=== PATIENT | female | born 1975 | race Caucasian/White ===

== ENCOUNTER 2024-09-04 06:55 | Observation (INO) ==
--- NOTE | 2024-07-23 12:33 | PAT Medication Instructions ---
Medication Instructions Date of Service July 23, 2024 Home Medications loratadine-pseudoephedrine ER 10 mg-240 mg tablet,extended [id number] (Claritin-D 24 Hour) 1 tab PO DAILY PRN sinus congestion thyroid (pork) 240 mg tablet ([place] Thyroid) 240 mg PO QAM MEDICATION INSTRUCTIONS: DO NOT take the morning of surgery loratadine-pseudoephedrine ER 10 mg-240 mg tablet,extended [id number] (Claritin-D 24 Hour) 1 tab PO DAILY PRN sinus congestion Take morning of surgery With a small sip of water, OTHERWISE NOTHING TO EAT OR DRINK AFTER MIDNIGHT: thyroid (pork) 240 mg tablet ([place] Thyroid) 240 mg PO QAM Other Notes If you have any questions please call us at [phone] or [phone] or [phone] or [phone]
--- NOTE | 2024-08-03 10:44 | Anesthesiology Consultation ---
Date of Service August 03, 2024 Assessment & Plan (1) Encounter for pre-operative examination: - Outpatient joint assessment: Patient is currently scheduled for inpatient pathway. If re-evaluated and patient/surgeon requests outpatient pathway, patient is acceptable candidate for outpatient joint program from anesthesia standpoint pending surgeon's office assessment of pt motivation/support/completion of same day joint program preop requirements. Chart Review Chart Review: Acceptable Risk for Surgery and Patient seen in Pre Admission Testing Teaching & Discussion Pre-Anesthesia Teaching/Discussion Notes: Instructed NPO after midnight before surgery, except medications with 15 cc of water. Medication instructions provided according to the PAT guidelines. History Surgery Operation Date: 09/04/24 08:00 Proposed Procedures p Right Anterior Total Hip Arthroplasty - Brayden Ziegler, Height/Weight Height: 5 ft 3 in Weight: 86.3 kg Allergies Allergy/AdvReac Type Severity Reaction Status Date / Time ciprofloxacin Allergy Severe Chest Pain Verified 07/17/24 11:03 erythromycin base Allergy Severe rash and Verified 07/17/24 11:03 hives (all over body) Sulfa (Sulfonamide Allergy Severe hives/rash/ Verified 07/17/24 11:03 Antibiotics) swelling gluten Allergy Intermediate vomiting, Verified 07/17/24 11:04 diarrhea surgical glue Allergy Severe Rash Uncoded 08/03/24 10:40 Additional Notes: Surgeon's office made aware of reported surgical glue reaction. Medications Home Medications Medication Instructions Recorded Confirmed Last Taken loratadine-pseudoephedrine ER 10 1 tab PO DAILY PRN sinus congestion 07/17/24 07/17/24 Unknown mg-240 mg tablet,extended [id number] (Claritin-D 24 Hour) thyroid (pork) 240 mg tablet 240 mg PO QAM 07/17/24 07/17/24 Unknown ([place] Thyroid) Past Medical History Medical History (Updated 08/03/24 @ 10:38 by Fany Matute PA-C) Gluten intolerance History of COVID-19 (~08/2023) ~2020: severe flu symptoms, cough and sob. resolved. 08/2023: cold symptoms. resolved. Hx of colonic polyp x1 removed at [facility] 2023 Hx of Lyme disease (2011) treated, developed gluten intolerance after the lyme disease. Hypothyroidism Patient denies h/o stroke, seizures, heart attack, heart failure, DM, HTN, blood clots/DVTs or blood transfusions. Exercise / Class Metabolic Activity II 4-5 Yardwork/Stairs/Walk up hill (denies chest discomfort or shortness of breath with one flight of stairs) Past Family History Family History Grandmother (Paternal) FHx: colonic polyps Past Surgical History Surgical History (Updated 08/03/24 @ 10:38 by Fany Matute PA-C) History of bilateral tubal ligation (1997) History of colonoscopy Hx of myomectomy (08/2022) uterine Past Anesthesia History No Family Hx of Anesthesia Complications and Other (slow to wake ) History of PONV No Hx of PONV and No Hx of Motion Sickness Social History Smoking Status: Former smoker Do You Dip or Chew Tobacco: No Smoking End Date: [id number] Hx Alcohol Use: Yes Alcohol type: wine alcohol intake frequency: a few times a week Hx Substance Use: No substance use type: does not use Review of Systems Occasional snoring, denies witnessed apneas. Patient denies chest pain, shortness of breath, dyspnea on exertion, reflux, fever, chills, cough, wheezing, or palpitations. Physical Exam Vital Signs Vitals BP 131/84 P 67 TEMP 98.7 SP02 96% on RA RESP 18 Physical Patient resting comfortably in chair in no acute distress, alert and oriented, responding appropriately throughout visit Full cervical extension range of motion without pain TMD 3.5 finger breadths Mallampati Score 2 Dentition: intact, denies chipped or loose teeth, caps/crowns, implants or bridges Lungs: normal respiratory effort. Good air movement, clear throughout to auscultation, no adventitious breath sounds Cardiac: regular rate and rhythm, no murmurs noted Carotid arteries: negative bruit bilat Lab Results Anesthesia Preop Results Results Anesthesia Widget: WBC 4.89 K/ul (4.8-10.8) 08/03/24 Hgb 14.3 g/dl (12.0-16.0) 08/03/24 Hct 42.4 % (37.0-47.0) 08/03/24 Plt 232 K/uL (130-400) 08/03/24 Na 139 mmol/L (136-145) 08/03/24 K 4.1 mmol/L (3.5-5.1) 08/03/24 Cl 105 mmol/L (98-107) 08/03/24 CO2 29 mmol/L (21-32) 08/03/24 BUN 15 mg/dl (6-23) 08/03/24 Creat 0.58 mg/dl (0.6-1.2) L 08/03/24 Glucose Level 83 mg/dl (70-99(Fasting)) 08/03/24 PT 10.7 Seconds (9.0-12.0) 08/03/24 PTT 25 Seconds (21-31) 08/03/24 INR 1.0 (0.9-1.1) 08/03/24 Blood Type A Positive 08/03/24 Antibody Screen NEGATIVE 08/03/24 Testing Electrocardiogram Date: 08/03/24 Sinus bradycardia, rate 55 bpm Chest X-Ray Date: 08/03/24 No acute findings.
--- NOTE | 2024-09-03 09:01 | History & Physical Report ---
Date of Service September 03, 2024 Assessment & Plan (1) Osteoarthritis of right hip: We will proceed with a right anterior total of arthroplasty. Postoperatively she will be started on aspirin for DVT prophylaxis and kept overnight in the hospital for postop medical management. She plans to have the hospital set up home health for discharge. History of Present Illness Chief Complaint: Osteoarthritis of the right hip. Primary Care Provider: Yael Winn MD Madhavi is a pleasant 49-year-old female who has been dealing with a 5-year history of increasing left hip and groin pain. She has been seen another provider. She has had an MRI and X-rays of her left hip. They suggest some osteoarthritis. She had an injection in her hip as well which relieved all of her symptoms for about 3 weeks. Unfortunately, her symptoms returned. Intervention conservative treatment, she has elected to proceed with a right anterior total of arthroplasty. Allergies Allergy/AdvReac Type Severity Reaction Status Date / Time ciprofloxacin Allergy Severe Chest Pain Verified 07/17/24 11:03 erythromycin base Allergy Severe rash and Verified 07/17/24 11:03 hives (all over body) Sulfa (Sulfonamide Allergy Severe hives/rash/ Verified 07/17/24 11:03 Antibiotics) swelling gluten Allergy Intermediate vomiting, Verified 07/17/24 11:04 diarrhea surgical glue Allergy Severe Rash Uncoded 08/03/24 10:40 Home Medications Medication Instructions Recorded Confirmed Type loratadine-pseudoephedrine ER 10 1 tab PO DAILY PRN sinus congestion 07/17/24 07/17/24 History mg-240 mg tablet,extended [id number] (Claritin-D 24 Hour) thyroid (pork) 240 mg tablet 240 mg PO QAM 07/17/24 07/17/24 History ([place] Thyroid) Past Med/Surg History Problem List Osteoarthritis of right hip Medical History History of COVID-19 (~08/2023) ~2020: severe flu symptoms, cough and sob. resolved. 08/2023: cold symptoms. resolved. Hx of colonic polyp x1 removed at [facility] 2023 Hypothyroidism Hx of Lyme disease (2011) treated, developed gluten intolerance after the lyme disease. Gluten intolerance Surgical History History of colonoscopy Hx of myomectomy (08/2022) uterine History of bilateral tubal ligation (1997) Family History Grandmother (Paternal) FHx: colonic polyps Social History Smoking Status: Former smoker Tobacco Type: Cigarettes Smoking End Date: ; Second Hand Exposure: No; Do You Dip or Chew Tobacco: No; Tobacco Cessation Education Requested by Patient: No Hx Alcohol Use: Yes Alcohol type: wine Hx Substance Use: No Preferred Language: Polish Communication Ability: Effective Feller Seam Operator Required: No Beliefs That Will Affect Care: None Current Living Situation: Significant Other Other Information That Helps Us Care for You: No Feels Safe at Home: Yes Safety Concerns: Feels Safe At This Time Assistive Devices: Glasses Review of Systems All systems reviewed & are unremarkable except as noted in HPI & below. Physical Exam On physical exam of the right hip, she has decreased range of motion. She has pain with internal/external rotation. All of her pain is located in the groin.. Constitutional WD/WN, vitals as above Eyes PERRL, conjunctivae normal, anicteric sclerae ENMT external ear and nose normal, oropharynx normal Neck trachea midline, no thyromegaly Respiratory normal respiratory effort Cardiovascular RRR, no murmur, no edema Gastrointestinal (Abdomen) normal bowel sounds, soft, nontender, no hepatosplenomegaly Psychiatric A+Ox3, euthymic affect Results & Data Results & Data Laboratory Results . Diagnostic Findings X-rays of the right hip show advanced osteoarthritis with joint space narrowing, osteophyte formation, and [id number] articulation. PG Care Time/CCT Total # of Minutes Spent Total Time Spent with Patient: Total time spent is greater than 50% in coordination of care (as documented) at patient's floor/unit and/or counseling patient: Coding Level of Care Code None Diagnoses Osteoarthritis of right hip M16.11
[~2024-09-04 06:55] MED LIST: BUPIVACAINE 0.5 % 5 MG/1 ML PF 10ML VIAL ONE
[2024-09-04] MEDS: FAMOTIDINE 20 MG TAB PO SCH (08:09)
[2024-09-04] MEDS: GABAPENTIN 900 MG DOSE PO SCH (08:09)
[2024-09-04] MEDS: ACETAMINOPHEN 500 MG TAB PO SCH ×2 (08:10→15:26)
--- NOTE | 2024-09-04 08:14 | History & Physical Bridge Note ---
Date of Service September 04, 2024 History & Physical Bridge Note I have examined the patient, reviewed the History & Physical and in the interval since the performance of the History & Physical I have noted the following changes of clinical significance: no changes noted
[2024-09-04] MEDS: dexAMETHasone**PF** 10 MG/ML VIAL IV SCH (08:23)
[2024-09-04] MEDS: LR 500ML BOLUS, THEN 15ML/HR IV SCH (08:23)
[2024-09-04] MEDS ORDERED: MIDAZOLAM HCL 1 MG/ML 2ML VIAL ONE (09:00)
[2024-09-04] MEDS ORDERED: PROPOFOL IV EMULSION 10 MG/ML 20 ML VIAL IV ONE (09:00)
[2024-09-04] MEDS ORDERED: ePHEDrine sulfate 50 MG/ML AMP IV PRN (09:10)
[2024-09-04] MEDS ORDERED: PROMETHAZINE HCL 6.25 MG in SODIUM CHLORIDE 0.9% 50 ML IV PRN (09:10)
[2024-09-04] MEDS ORDERED: ATROPINE SULFATE 0.1 MG/ML 10ML SYR IV PRN (09:10)
[2024-09-04] MEDS ORDERED: ONDANSETRON INJ 2 MG/ML 2 ML VIAL IV PRN (09:10)
[2024-09-04] MEDS: TRANEXAMIC ACID 1,000 MG **IV Pre-op IV SCH (09:55)
[2024-09-04] MEDS: ceFAZolin 2000MG 2,000 MG/15 ML SYR IV SCH ×2 (10:08→17:10)
[2024-09-04] MEDS: LR 60ML/HR IV SCH (10:11)
[2024-09-04] MEDS ORDERED: PHENYLEPHRINE HCL 10 MG/ML VIAL ONE (10:31)
[2024-09-04] MEDS: ORTHO JOINT ANESTHETIC ONE (10:40)
[2024-09-04] MEDS: ROPIV 0.5% 246mg, Ketorolac 30mg, EPINEPHrine 0.5mg in NSS INFIL SCH (10:40)
[2024-09-04] MEDS: TRANEXAMIC ACID 1,000 MG **IV Intra-op IV SCH (11:11)
--- NOTE | 2024-09-04 11:18 | Operative Report ---
PG Post Operative Report Pre & Post Diagnosis Operation Date: 09/04/24 10:00 Pre-Op Diagnosis: Right Hip Arthritis Post-Op Diagnosis: Right Hip Arthritis I identified the patient and participated in the time-out.: Yes Procedure Operation Date: 09/04/24 10:00 Actual Procedures p Right Anterior Total Hip Arthroplasty(Right) - Brayden Ziegler DO Surgeon Brayden Ziegler DO Hyperbaric Nurse Loco Lunsford PA-C Estimated Blood Loss 300 Findings Consistent with Post-Op Diagnosis Specimens Right femoral head Description of Procedure Implants used I used a ZimmerBiomet total hip arthroplasty system with a size 0 standard offset Avenir Complete stem, a 48 mm G7 cup with a 25mm screw, an E1 polyethylene liner, a 32 mm ceramic head with a -3.5 neck. Madhavi arrived at the hospital for the above procedure. She was seen in the preoperative holding area and the operative extremity was identified and signed. She was given a spinal anesthetic, a preoperative antibiotic, and TXA. She was then taken back to the operating room and laid on the table in the supine position. She was given basic sedation. The operative leg was secured to a Puristst leg positioner. The hip was then prepped and draped in sterile fashion. A timeout was done and the patient and the operative extremity was properly identified. An anterior approach was used. Dissection was taken down through the fascia and the tensor muscle belly was retracted laterally and the rectus was retracted medially. The circumflex vessels were identified and ligated. The capsule was then incised and tagged for later repair. The femoral neck was then cut and the femoral head was removed. The acetabulum was exposed. Time was spent doing a complete circumferential labral release. Sequential reaming of the acetabulum up to a size 47 reamer was done. Final reamings were done under fluoroscopy to ensure appropriate version. A Biomet 48 mm G7 cup was then impacted into place. A single 25 mm screw was placed. The E1 polyethylene liner was then snapped into place. Surrounding soft tissues were then injected with 100 cc of an orthopedic pain control cocktail. The proximal femur was then exposed. Sequential broaching up to a size 0 broach was done. Off that broach a size 32 head with a -3.5 neck was trialed. The hip was reduced and fluoroscopic images showed anatomic alignment of the implants in acceptable length. The broach was removed. The final size 0 standard offset Avenir Complete stem was then impacted into place. A ceramic 32 mm head with a -3.5 neck was then impacted onto the stem and the hip was reduced. Final fluoroscopic images showed anatomic alignment of the hip. The capsule was then closed with #1 Vicryl suture. A dilute betadyne lavage was then done for 3 minutes. The joint was then irrigated with normal saline solution. The fascia was closed with #1 PDS suture. Skin was closed with 2-0 Vicryl, kirk, and a Silverlon dressing. She was then transferred to a hospital bed and taken to the post anesthesia care unit in stable condition. She tolerated the procedure well. Loco Lunsford PA-C, was present for the entire procedure. He was critical for patient positioning, prepping, draping, retraction exposure, wound closure and application of sterile dressing. I attest to the content of the Intraoperative Record and any orders documented therein. Any exceptions are noted below.
--- NOTE | 2024-09-04 12:47 | XRay Report ---
XR hip 1V RT w pelvis CLINICAL HISTORY: IN PACU - Post Surgical COMPARISON: 12/23/2023 FINDINGS: Right hip prosthesis shows no hardware complication. There is expected soft tissue gas. Sk in kirk are present. IMPRESSION: Unremarkable postoperative exam. ACT 112: Negative or not required by law. Electronically signed by: Isacc Cordero M.D. 09/04/2024 12:46 PM
[2024-09-04] MEDS: fentaNYL citrate PF 100 MCG/2 ML VIAL IV PRN (13:04)
--- NOTE | 2024-09-04 13:13 | Fluoroscopy Report ---
FL hip RT 1V CLINICAL HISTORY: RIGHT ANTERIOR HIP COMPARISON STUDY: 09/04/2024 FLUOROSCOPY TIME: 21 seconds FLUOROSCOPY IMAGES: 2 EXPOSURE DOSE: 3.1 mGy FINDINGS: Fluoroscopy was provided for right hip prosthesis. IMPRESSION: Intraoperative fluoroscopy. ACT 112: Negative or not required by law. Electronically signed by: Isacc Cordero M.D. 09/04/2024 1:11 PM
[2024-09-04] MEDS ORDERED: METOCLOPRAMIDE HCL INJ 5 MG/ML 2 ML VIAL IV PRN (14:02)
[2024-09-04] MEDS ORDERED: NALOXONE HCL 0.4 MG/1 ML VIAL/CARP IV PRN (14:02)
[2024-09-04] MEDS ORDERED: MAGNESIUM HYDROXIDE SUSP 30 ML UDC PO PRN (14:02)
[2024-09-04] MEDS ORDERED: bisacodyL 10 MG SUPP PR PRN (14:02)
[2024-09-04] MEDS: ONDANSETRON INJ 2 MG/ML 2 ML VIAL IV PRN (14:32)
--- NOTE | 2024-09-04 15:10 | Anesthesiology Progress Note ---
Date of Service September 04, 2024 Anesthesia Post Procedure Vital Signs Vital Signs: Temp Pulse Pulse Resp BP Pulse Ox O2 Del Method 09/04/24 14:45 36.6 C 59 L 16 93/56 L 96 Room Air 09/04/24 13:45 36.6 C 80 16 94/68 L 94 Room Air 09/04/24 13:20 80 16 113/75 96 Room Air 09/04/24 13:05 79 16 122/68 95 Room Air 09/04/24 12:50 79 16 119/70 96 Room Air 09/04/24 12:35 36.4 C L 87 16 118/70 95 Room Air 09/04/24 12:20 72 15 122/61 94 Room Air 09/04/24 12:10 79 15 116/73 96 Room Air 09/04/24 12:00 78 15 117/77 100 Oxymask 09/04/24 11:50 73 17 119/69 100 Oxymask 09/04/24 11:40 36.0 C L 82 17 113/71 100 Oxymask 09/04/24 07:38 36.8 C 68 18 107/83 97 Room Air O2 Flow Rate 09/04/24 14:45 09/04/24 13:45 09/04/24 13:20 09/04/24 13:05 09/04/24 12:50 09/04/24 12:35 09/04/24 12:20 09/04/24 12:10 09/04/24 12:00 5 09/04/24 11:50 5 09/04/24 11:40 5 09/04/24 07:38 Pain Intensity Right Hip: Pain Intensity: 1 Transfer of Care Handoff Completed per policy Notes Mental Status: alert / awake / arousable and participated in evaluation Patient Amnestic to Procedure: Yes Nausea / Vomiting: adequately controlled Pain: adequately controlled Airway Patency, RR, SpO2: stable & adequate BP & HR: stable & adequate Hydration State: stable & adequate Neuraxial Anesthesia: was administered and sensory block is resolving Anesthetic Complications: no major complications apparent and Pt Satisfied with anesthetic care
[2024-09-04] MEDS: KETOROLAC TROMETHAMINE 15 MG/ML VIAL IV SCH (15:26)
--- OUTSIDE RECORDS SUMMARY | 2024-09-04 16:37 | External Medical Summary ---
Author Name Unknown Address Unknown Organization R1WR:[facility] [address] [place] [address] Laboratory Report Ordering Provider Test Date Status DANNI FORTUNE 08/03/2024 08:27:00 Final Observation Date Value Abnormality Reference (Units ) Status 08/03/2024 11:54 10.10 (mIU/mL) Fin al Adults mIU/mL Men (19-70 y) 1.0-5.6 Women Follicular phase 1.7-15.0 Midcycle peak 21.9-56.6 Luteal phase 0.6-16.3 Postmenopausal 9.0-52.3 Children mIU/mL mIU/mL Males Females Cord blood 0.1-2.6 0.1-2.6 2 wk 4.9-10.0 0.3-7.9 1-18 mo 0.1-3.0 0.1-1.8 19mo-7y 0.1-1.0 0.1-0.6 8-9 y 0.1-0.8 0.1-0.2 10-11 y 0.1-4.4 0.1-4.1 12-14 y 0.3-4.8 0.3-29.4 15-18 y 0.7-7.2 0.1-29.4 Presley Stages I 0.1-0.4 0.1-0.2 II 0.3-4.8 0.3-4.1 III 0.6-3.7 0.2-4.1 IV 0.6-7.2 0.7-15.0 V 1.5-7.0 0.3-29.4 Performing Location [facility] [address] [place] [address]
--- OUTSIDE RECORDS SUMMARY | 2024-09-04 16:37 | External Medical Summary ---
Author Name Unknown Address Unknown Organization R1WR:[facility] [address] [place] [address] Laboratory Report Ordering Provider Test Date Status LYNNETTE FORTUNEMELISSA 08/03/2024 08:27:00 Final Observation Date Value Abnormality Reference (Units ) Status Cortisol 08/03/2024 11:54 6.0 (ug/dL) Fin al Cortisol Range (ug/dL) A.M. serum (7-9 a.m.) 5.3 - 22.5 P.M. serum (3-5 p.m.) 3.4 - 16.8 Performing Location [facility] [address] [place] [id number]
--- OUTSIDE RECORDS SUMMARY | 2024-09-04 16:37 | External Medical Summary ---
Author Name Unknown Address Unknown Organization R4LH:[facility] [address] [place] [address] Laboratory Report Ordering Provider Test Date Status DANNI FORTUNE 08/03/2024 08:27:00 Final Observation Date Value Abnormality Reference (Units ) Status Z-Score Female 08/11/2024 15:22 SEE NOTE Final Unit: SD Z SCORE (FEMALE) -0 .3 REFERENCE RANGE: -2.0 - +2.0 This test was developed and its analytical performance characteristics have been determined by [employer]. It has not been cleared or approved by FDA. This assay has been validated pursuant to the CLIA regulations and is used for clinical purposes. Test performed at [employer] [address] [place] [address] Director: ARMEN GALARZA MD,PHD,SHANE IGF-I, LC/MS 08/11/2024 15:22 122 Final Reference range: 52 to 328 U nit: ng/mL Performing Location [facility] [address] [place] [address]
--- OUTSIDE RECORDS SUMMARY | 2024-09-04 16:37 | External Medical Summary ---
Author Name Unknown Address Unknown Organization R1WR:[facility] [address] [place] [address] Laboratory Report Ordering Provider Test Date Status DANNI FORTUNE 08/03/2024 08:27:00 Final Observation Date Value Abnormality Reference (Units ) Status FSH 08/03/2024 11:54 45.5 (mIU/mL) Fin al Adults mIU/mL Men (19-70 y) 1.5-14.3 Women Follicular 1.4-9.9 Midcycle peak 6.2- 17.2 Luteal 1.1-9.2 Postmenopausal 14.9-124.3 Children Males Females mIU/mL mIU/mL 2 wk 1.2-5.2 2.1-30.5 1-18 mo 0.2-3.0 1.1-14.4 19mo-7y 0.3-1.9 0.7-3.4 8-9 y 0.3-1.7 0.3-5.6 10-11 y 0.2-5.8 0.7-7.3 12-14 y 0.2-10.3 1.0-9.2 15-18 y 0.8-8.2 0.3-10.5 Presley Stages I 0.3-1.9 0.5-2.4 II 0.7-4.6 1.7-4.7 III 1.2-10.4 2.5-7.0 IV 1.7-10.4 1.3-7.4 V 1.5-7.0 1.0-9.2 Performing Location [facility] [address] [place] [address]
[2024-09-04] MEDS: oxyCODONE HCL IR 5 MG TAB (IMMEDIATE RELEASE) PO PRN (16:54)
[2024-09-04] MEDS ORDERED: ceFAZolin 1000MG 1,000 MG/7.5 ML SYR IV SCH (17:45)
[2024-09-04] MEDS: HYDROmorphone INJ 0.5 MG/0.5 ML SYR IV PRN (18:42)
[2024-09-04] MEDS: ASPIRIN 81 MG ECTAB PO SCH (20:39)
[2024-09-04] MEDS: SENNA 8.6 MG TAB PO SCH (20:40)
[2024-09-04] MEDS: DOCUSATE SODIUM 100 MG CAP PO SCH (20:40)
[2024-09-05] MEDS: dexAMETHasone 4 MG TAB PO SCH (07:40)
[2024-09-05] MEDS: MULTIVITAMIN TAB PO SCH (07:40)
[2024-09-05] MEDS: ARMOUR THYROID 30 MG TAB PO SCH (07:42)
[2024-09-05 07:51] VITALS: BP 103/66; PULSE 62; RESP 18; TEMP 97.7; O2SAT 96
--- NOTE | 2024-09-05 08:10 | Orthopedic Progress Note ---
Date of Service September 05, 2024 Assessment & Plan (1) Status post right hip replacement: Overall she is doing fairly well. She is not having much pain in the right hip. She will be seen by physical therapy today for ambulation and range of motion exercises. She is on aspirin for DVT prophylaxis. She can be discharged to home later today. She will follow-up with orthopedics in 2 weeks. Magalie Hendrickson was seen and examined at bedside this morning. Overall she is doing fairly well. She is not having much pain in the right hip. She has been up and ambulating to the bathroom. She has no complaints.. Review of Systems All systems reviewed & are unremarkable except as noted in HPI & below. Physical Exam On physical exam of the right hip, the dressing is clean and dry. Her legs out in full extension. She has active dorsiflexion and plantarflexion of her right ankle.. Results & Data Results & Data Laboratory Results . Diagnostic Findings Postoperative x-rays of the right hip show the prosthesis to be in anatomic alignment without any evidence of fracture complication, or loosening.. PG Care Time/CCT Total # of Minutes Spent Total Time Spent with Patient: Total time spent is greater than 50% in coordination of care (as documented) at patient's floor/unit and/or counseling patient: Coding Level of Care Code 07093 Post Operative Follow-Up Diagnoses Status post right hip replacement Z96.641
--- NOTE | 2024-09-05 08:11 | Discharge Summary ---
Date of Service September 05, 2024 Admission HPI (Per Admitting) Madhavi is a pleasant 49-year-old female who has been dealing with a 5-year history of increasing left hip and groin pain. She has been seen another provider. She has had an MRI and X-rays of her left hip. They suggest some osteoarthritis. She had an injection in her hip as well which relieved all of her symptoms for about 3 weeks. Unfortunately, her symptoms returned. Intervention conservative treatment, she has elected to proceed with a right anterior total of arthroplasty. Admission Exam (Per Admitting) On physical exam of the right hip, she has decreased range of motion. She has pain with internal/external rotation. All of her pain is located in the groin.. Principal Diagnosis Same as "Discharge Diagnosis" noted below under Discharge Instructions. Discharge Exam On physical exam of the right hip, the dressing is clean and dry. Her legs out in full extension. She has active dorsiflexion and plantarflexion of her right ankle.. Discharge Data Procedures Performed Operation Date: 09/04/24 10:00 Actual Procedures p Right Anterior Total Hip Arthroplasty(Right) - Brayden Ziegler DO Ordered Studies 09/04/24 10:00 FL hip RT 1V Routine Hospital Course (1) Status post right hip replacement: On September 04, 2024 Madhavi arrived at [facility] and underwent a right hip replacement without complication. She had a spinal anesthetic. Postoperatively, she was started on aspirin for DVT prophylaxis and transferred to the general orthopedic floors. Her hospital course was uneventful. On postop day #1, her vital signs were stable and her pain was well-controlled. She was able to participate well with physical therapy doing ambulation and range of motion exercises. She was then discharged to home. She will follow with orthopedics in 2 weeks. PG Care Time/CCT Total # of Minutes Spent Total Time Spent with Patient: Total time spent is greater than 50% in coordination of care (as documented) at patient's floor/unit and/or counseling patient: Discharge Plan Discharge Items Patient Disposition: Home - Self-Care Reason For Visit: Right Hip Arthritis Discharge Diagnosis: Right hip replacement Activity: Per Instructions section Non-emergency contact: Surgeon Call non-emergency contact if: your wound has increased redness and your wound has increased drainage Follow-up/Referrals: Yael Winn MD [Primary Care Provider] - Diet: Regular Addtl Attending Provider Instructions: Activity and Therapy Recommendations: * If you are using [facility] then therapy will be provided at your home until they feel you have accomplished all of your goals. * If you are using [facility] then Physical Therapy will be provided until they feel you are ready to start Outpatient Physical Therapy. * If you are not using home therapy then Outpatient Physical Therapy should start about 3-5 days from your day of surgery. Therapy will last about 6-10 weeks * You were shown a series of exercises in the hospital. Do these exercises three times each day including the exercises you were shown in physical therapy. * Get up and walk several times each day.~ For the first four weeks, try not to stand or walk for more than one hour at a time. If you do stand or walk for more than one hour, you will not hurt anything, but your leg will likely swell.~~ * As you feel comfortable, you may change from the walker or crutches to a cane and~then to independent walking. Medications: * Narcotic You will likely be sent home from the hospital with a prescription for the narcotic pain medication that worked best throughout your stay. * Cefadroxil -take the antibiotic twice a day for 10 days to help prevent infection. * Aspirin Most patients will be required to take Aspirin 81mg twice a day for 6 weeks after surgery. This is obtained [id number] and a prescription is not necessary. * Other medications may be prescribed for specific circumstances. If you have any questions, please call the office at . * Resume previous home medications unless otherwise instructed TEDs/Elastic Stockings: The white elastic stockings help limit swelling and prevent blood clots from forming in your legs. The more you wear them, the more they work. Wear them for 2 weeks. Dressing Care: Leave the Silverlon dressing in place for 7 days. After 7 days you may remove the dressing. If the incision is not draining then you may leave the kirk open to air. If there is a little bit of drainage or if the kirk are getting stuck on your clothing then cover the incision with a dry dressing. The kirk will be removed at your 2 week follow-up appointment. Showering: You may shower with the Silverlon dressing in place. Do not let the shower spray hit the dressing directly. Pat the Silverlon dressing dry. If the dressing becomes wet underneath, then simply remove the dressing. Keep the incision dry until you are 7 days out from the day of surgery. After 7 days you may remove the Silverlon dressing and shower with the kirk exposed. Let soapy water run over the kirk and pat them dry. Do not scrub or soak the incision. Diet: You may resume your previous diet. Things To Watch For: * Drainage from the incision site that occurs more than one week after your surgery. * Increased redness at the incision site. * Fever above 102 degrees Fahrenheit. * Unusual chest pain or shortness of breath. * Call [facility] at with any of the above problems Follow-Up Visit: Follow-up with Dr. Ziegler's office 2-3 weeks after your day of surgery. We will remove your kirk and answer any questions. If you have any additional questions or concerns, Dr Ziegler is usually in the office at the same time and will be available An appointment was probably scheduled when you signed-up for surgery in the office. If you have any questions call Office Instructions: More detailed instructions as well as Frequently Asked Questions were provided in a folder by our office when you signed-up for surgery. Please review these instructions when you get home. If you have any further questions or concerns, please feel free to call the office at [phone] Pending Studies at Discharge: No Stand-Alone Forms: [facility], Smoking Cessation Medications and DC Order Prescriptions: New cefadroxil 500 mg capsule 500 mg PO BID 10 Days Qty: 20 0RF oxycodone 5 mg tablet 5 mg PO Q6H PRN (Reason: pain) Qty: 30 0RF aspirin 81 mg Tablet,Delayed Release (Dr/Ec) 81 mg PO BID 42 Days Qty: 0 0RF Continued [place] Thyroid 240 mg Tablet 240 mg PO QAM Claritin-D 24 Hour 10-240 mg Tablet Extended Release 24 Hr 1 tab PO DAILY PRN (Reason: sinus congestion) Discharge Orders: Discharge Order (Routine); Ordered 09/05/24 Ordered By: Brayden Ziegler Admission Data Admit Date/Time: 09/04/24 11:40 Attending Provider: Brayden Ziegler Admit Provider: Brayden Ziegler Primary Care Provider: Yael Winn
== END 2024-09-05 11:28 | disposition home health service (06) ==
LOC: ASU 06:55 → 3N 06:55